=== PATIENT | male | born 1995 | race Asian ===

== ENCOUNTER 2017-11-14 00:43 | Emergency (ER) | payer OTHER ==
[~2017-11-14] VITALS: Ht 185.4 cm; Wt 85.1 kg
[2017-11-14 00:48] VITALS: TEMP 36.9; Ht 185.4 cm; Wt 85.1 kg
--- NOTE | 2017-11-14 02:21 | EMERGENCY ROOM VISIT NOTE ---
History First contact with patient: 00:54 Chief Complaint: ANKLE PAIN Stated Complaint: SPAINED RT ANKLE History of Present Illness The patient is a 22 year old male who presents to the Emergency Room with complaints of a right ankle injury. The patient reports that he was playing basketball this evening when he stepped on someone's foot and rolled his ankle. He rates his discomfort a 6/10 when he is walking on the ankle. He denies any pain at rest. He denies previous injuries to the ankle. He denies numbness or weakness. Review of Systems A complete 6 point review of systems was reviewed with the patient with pertinent positives and negatives as per history of present illness. All else were negative. Past Medical/Surgical History Medical Problems: (1) No significant past medical history Surgical Problems: (1) No significant past surgical history Social History Smoking Status: Never Smoker Alcohol Use: none Housing Status: lives with roommate Occupation Status: [employer] student Physical Exam Vital Signs Date Time Temp Pulse Resp B/P (MAP) Pulse Ox O2 Delivery O2 Flow Rate FiO2 11/14/17 02:31 61 20 138/62 98 11/14/17 00:48 36.9 85 16 142/73 96 Room Air Physical Exam VITALS: Vitals are noted on the nurse's note and reviewed by myself. Vital signs stable. GENERAL: This is a 22-year-old male, in no acute distress, nondiaphoretic, well- developed well-nourished. MUSCULOSKELETAL: There is moderate soft tissue swelling over the right lateral malleolus and dorsal aspect of the foot. There is tenderness to palpation of the lateral malleolus and midfoot. No tenderness of the proximal tibia/fibula or medial malleolus. Slightly decreased range of motion of the ankle. NEURO: Patient was alert and oriented to person place and time. Normal sensation to light and sharp touch. Medical Decision & Procedures ER Provider Diagnostic Interpretation: RIGHT FOOT; RIGHT ANKLE: Soft tissue swelling with no acute fractures identified. Medical Decision Differential diagnosis includes fracture, sprain, contusion, dislocation, among others. The patient was evaluated as above. X-rays of the right ankle and foot were obtained and reviewed by myself and do not show any obvious fractures. Patient was placed in a gel ankle splint and instructed on the use of crutches. He was given orthopedic information for follow-up. He verbalized understanding of my assessment and treatment plan and was discharged home in good condition. Medication Reconcilliation Current Medication List: was personally reviewed by me Blood Pressure Screening Patient's blood pressure: Elevated blood pressure Blood pressure disposition: Elevated BP felt to be situational Impression Primary Impression: Right ankle sprain Departure Information Dispostion Home / Self-Care Condition GOOD Referrals [facility] (PCP) Larry Hilliard M.D. Patient Instructions My [facility] Additional Instructions You have been treated in the Emergency Department for an Ankle sprain. For pain control, you can use the following [id number] medicines (if >12 yo): - Regular strength (325mg/tab) Tylenol (acetaminophen) 2 tabs every 4-6 hours as needed. Do not exceed 12 tablets in a 24 hour period. Avoid taking more than 4 grams (4000 mg) of Tylenol per day. This includes any other sources of acetaminophen you may take on a regular basis. - Regular strength (200 mg/tab) Advil (ibuprofen) 1-2 tabs every 4-6 hours as needed. Do not exceed a dose of 3200 mg per day. If this is a recent injury (<24 hrs), ice can be applied to the area of pain for the first 3 days to help decrease pain and inflammation. Follow-up with orthopedics if you have persistent or worsening pain in the ankle. Keep the ankle brace/splint in place and use the crutches you have been provided to keep ALL weight off of the ankle until weight bearing is tolerable. Return to the Emergency Department if your current symptoms worsen despite treatment course outlined above, or if you develop any of the following symptoms : intractable pain despite aforementioned treatment course or new onset of numbness or tingling of the foot. Problem Qualifiers Primary Impression: Right ankle sprain Encounter type: initial encounter Involved ligament of ankle: unspecified ligament Qualified Codes: S93.401A - Sprain of unspecified ligament of right ankle, initial encounter
[2017-11-14 02:31] VITALS: BP 138/62; PULSE 61; O2SAT 98
--- NOTE | 2017-11-14 07:16 | DIAGNOSTIC IMAGING REPORT ---
RIGHT ANKLE 3 VIEWS; RIGHT FOOT 3 VIEWS CLINICAL HISTORY: Right foot and ankle injury. FINDINGS: 3 views of the left ankle and 3 views of the right foot are obtained. No prior studies are available for comparison at the time of dictation. The skeletal structures are well mineralized. No fracture is identified at the ankle joint. The ankle mortise is intact. No fracture is seen in the right foot. The joint spaces of the foot are well-maintained. There is an ankle joint effusion, and soft tissue edema is seen around the ankle. The soft tissues of the foot are normal in appearance. IMPRESSION: 1. Soft tissue swelling and joint effusion with no radiographic evidence of right ankle fracture. 2. There is no radiographic evidence of fracture involving the right foot. Electronically signed by: Turner Ross M.D. 11/14/2017 7:15 AM Dictated Date/Time: 11/14/2017 7:14 AM
== END 2017-11-14 02:32 | disposition home or self-care (01) ==
LOC: C.EDB 00:46 → C.EDC 02:32
DX: S93.401A Sprain of unspecified ligament of right ankle, initial encounter (principal); X50.9XXA Other and unspecified overexertion or strenuous movements or postures, initial encounter